=== PATIENT | male | born 1940 | race Caucasian/White ===

== ENCOUNTER 2024-03-07 12:37 | Emergency (ER) | payer BC, MEDICARE, OTHER ==
[2024-03-07] MEDS ORDERED: Oxymetazoline HCl 0.05% (30 ML BOT) ONE (13:02)
[2024-03-07] MEDS ORDERED: Silver Nitrate Application 1 EACH ONE (13:23)
== END 2024-03-07 14:01 | disposition home or self-care (01) ==
LOC: BURERS 12:37
DX: R04.0 Epistaxis (principal); I10 Essential (primary) hypertension; E78.5 Hyperlipidemia, unspecified; I48.92 Unspecified atrial flutter; Z79.82 Long term (current) use of aspirin; Z79.01 Long term (current) use of anticoagulants; Z79.899 Other long term (current) drug therapy
CPT/HCPCS: 99283